=== PATIENT | female | born 1990 | race Caucasian/White ===

== ENCOUNTER 2022-03-11 21:06 | Inpatient (IN) ==
[2022-03-11] MEDS ORDERED: Metoclopramide 10 MG/2 ML VIAL IVP PRN (21:07)
[2022-03-11] MEDS ORDERED: Famotidine 20 MG/2 ML VIAL IVP PRN (21:07)
[2022-03-11] MEDS ORDERED: *HR* Nalbuphine 10 MG/ML AMPUL IV PRN (21:07)
[2022-03-11] MEDS ORDERED: Naloxone 0.4 MG/ML INJ IVP PRN (21:07)
[2022-03-11] MEDS ORDERED: EPHEDrine 50 MG/ML VIAL IVP PRN (21:58)
[2022-03-11 22:13] LABS: Basophils % 0.3 %; Eosinophils # 0.1 K/mcL (0.0-0.6); Eosinophils % 0.8 %; Hematocrit 37.3 % (35.3-44.9); Hemoglobin 12.6 g/dL (11.5-15.4); Immature Granulocytes % 0.4 % (0-4); Lymphocytes # 1.8 K/mcL (0.6-4.6); Lymphocytes % 18.5 %; Mean Corpuscular HGB Conc 33.8 g/dL (31.6-35.5); Mean Corpuscular Hemoglobin 30.8 pg (28.0-33.3); Mean Corpuscular Volume 91.2 fL (83.0-100.0); Mean Platelet Volume 11.3 fL (9.4-12.4); Monocytes # 0.6 K/mcL (0.0-1.3); Monocytes % 6.4 %; Platelet Count 214 K/mcL (140-400); Red Blood Count 4.09 M/mcL (3.82-4.97); Red Cell Distribution Width 13.5 % (11.5-14.5); Segmented Neutrophils % 73.6 %; White Blood Count 9.5 K/mcL (4.3-11.1)
[2022-03-11 22:54] LABS: Influenza A PCR Negative (Negative); Influenza B PCR Negative (Negative); Resp. Syncytial Virus PCR Negative (Negative)
[2022-03-11 22:56] LABS: SARS-CoV-2 by PCR (In House) Negative (Negative)
[2022-03-11 23:46] LABS: Amphetamine Screen,Urine Negative ng/mL (Cutoff=1000); Barbiturate Screen,Urine Negative ng/mL (Cutoff=200); Benzodiazepines Screen,Urine Negative ng/mL (Cutoff=200); Cannabinoid Screen,Urine Negative ng/mL (Cutoff = 50); Cocaine Screen,Urine Negative ng/mL (Cutoff= 300); Opiate Screen,Urine Negative ng/mL (Cutoff=300); Phencyclidine Screen,Urine Negative ng/mL (Cutoff=25)
[2022-03-12] MEDS ORDERED: Ropivacaine/PF 0.2% 20 ML VIAL ONE (00:22)
[2022-03-12] MEDS ORDERED: *HR* FentaNYL (PF) 100 MCG/2 ML VIAL ONE (00:22)
[2022-03-12] MEDS: Ringers Solution, Lactated 1,000 ML IVC SCH ×3 (01:47→15:30)
[2022-03-12] MEDS: Ondansetron 4 MG/2 ML VIAL IVP PRN ×2 (01:49→18:24)
[2022-03-12] MEDS: Oxytocin 30 UNIT/503 ML BAG IVC SCH (01:51)
[2022-03-12] MEDS: Epidural Premix (fent/bupiv) 110 ML EP SCH ×3 (08:17→15:27)
[2022-03-12] MEDS: Prenatal Vit/FA 1 EACH TABLET PO SCH (10:30)
[2022-03-13] MEDS: Ondansetron 4 MG/2 ML VIAL IVP PRN (00:06)
[2022-03-13] MEDS ORDERED: Lanolin 7 G OINT...G. TP PRN (02:39)
[2022-03-13] MEDS ORDERED: Benzocaine/Menthol 56 GM AEROSOL SPRAY TP PRN (02:39)
[2022-03-13] MEDS ORDERED: Rho Immune Globulin 1,500 UNIT SYRINGE IM PRN (02:39)
[2022-03-13] MEDS ORDERED: Measles/Mumps/Rubella Vacc 0.5 ML VIAL SQ PRN (02:39)
[2022-03-13] MEDS ORDERED: Ondansetron ODT 4 MG TAB.RAPDIS SL PRN (02:39)
[2022-03-13] MEDS ORDERED: Oxytocin 30 UNIT/503 ML BAG IVC SCH (02:45)
[2022-03-13] MEDS: Acetaminophen 325 MG TABLET PO SCH ×3 (03:11→19:13)
[2022-03-13] MEDS: Oxytocin 30 UNIT/503 ML BAG IVC SCH (03:12)
[2022-03-13] MEDS: Ibuprofen 600 MG TABLET PO SCH ×3 (04:54→19:13)
[2022-03-13] MEDS: Ringers Solution, Lactated 1,000 ML IVC SCH (05:09)
[2022-03-13 05:25] LABS: Basophils % 0.2 %; Hematocrit 29.3 % (35.3-44.9); Immature Granulocytes % 0.7 % (0-4); Mean Corpuscular HGB Conc 34.1 g/dL (31.6-35.5); Mean Corpuscular Hemoglobin 31.3 pg (28.0-33.3); Mean Corpuscular Volume 91.8 fL (83.0-100.0); Mean Platelet Volume 10.7 fL (9.4-12.4); Monocytes # 0.6 K/mcL (0.0-1.3); Monocytes % 3.2 %; Platelet Count 159 K/mcL (140-400); Red Blood Count 3.19 M/mcL (3.82-4.97); Red Cell Distribution Width 13.5 % (11.5-14.5); Segmented Neutrophils % 90.9 %
[2022-03-13 05:28] LABS: Neutrophils # 17.5 K/mcL (1.6-8.9); White Blood Count 19.3 K/mcL (4.3-11.1)
[2022-03-13] MEDS: Prenatal Vit/FA 1 EACH TABLET PO SCH (07:52)
[2022-03-13] MEDS ORDERED: Prenatal Vit/FA 1 EACH TABLET PO SCH (09:00)
[2022-03-13] MEDS ORDERED: Pramoxine 15 GM FOAM Package TP SCH (16:15)
[2022-03-13] MEDS: *HR* OxyCODONE Immed Rel 5 MG TABLET PO PRN ×2 (16:23→20:12)
[2022-03-13 22:56] VITALS: O2SAT 97
[2022-03-14] MEDS: *HR* OxyCODONE Immed Rel 5 MG TABLET PO PRN ×2 (00:51→05:09)
[2022-03-14] MEDS: Acetaminophen 325 MG TABLET PO SCH (06:36)
[2022-03-14] MEDS: Ibuprofen 600 MG TABLET PO SCH (06:36)
[2022-03-14 07:02] VITALS: BP 114/64; PULSE 87; TEMP 98
[2022-03-14] MEDS: Prenatal Vit/FA 1 EACH TABLET PO SCH (07:46)
[2022-03-14] MEDS ORDERED: polyethylene glycoL 3350 17 GM POWD.PACK PO SCH (21:00)
== END 2022-03-14 12:37 | disposition home or self-care (01) | DRG 768 ==
LOC: 1NENULAB → 1NENUOBS 03-13 02:22
PROVIDERS: ADMIT Student in an Organized Health Care Education/Training Program; ATTEND Student in an Organized Health Care Education/Training Program